=== PATIENT | male | born 1960 | race Caucasian/White ===

== ENCOUNTER 2018-07-16 12:56 | Day surgery (SDC) | payer OTHER ==
[~2018-07-16 12:56] MED LIST: AMARYL2 MG PO; BACTRIM DS1 TAB PO; DOXYCYC MONO100 MG OR; GABAPENTIN300 MG PO; GLIPIZIDE10 M2 PO; GLIPIZIDE10 MG PO; HYDROCHLOR12.5 MG/CA PO; HYDROCHLOROT12.5 MG PO; JANUVIA50 MG PO; LISINOPRIL10 MG PO; LOPRESSOR50 M1 PO; METOPROL TAR100 MG PO; METOPROLOL TAR100 MG PO; TIZANIDINE4 MG PO; TRAMADOL HCL50 MG PO; TRIAM/HCTZ1 CAP PO
[2018-07-16] MEDS ORDERED: PRANDIN2 MG PO (13:23)
[2018-07-16] MEDS ORDERED: NOVOLOG MIX SC (13:25)
[2018-07-16 13:59] LABS: HEMATOCRIT 46.8 % (39.0-50.0); HEMOGLOBIN 15.8 g/dl (14.0-18.0); MEAN CELL VOLUME 91.1 fL CALC (80.0-100.0); MEAN CORPUSCULAR HGB 30.7 pG CALC (26.0-32.0); MEAN CORPUSCULAR HGB CONC 33.8 g/L CALC (32.0-36.0); RED BLOOD COUNT 5.14 mill/uL (4.70-6.10); RED CELL DISTRI WIDTH 12.3 % (11.5-15.5)
[2018-07-16 14:19] LABS: ALKALINE PHOSPHATASE 83 u/l (38-126); ANION GAP 18 (6-22 (CALC)); BILIRUBIN, TOTAL 0.6 mg/dL (0.0-1.4); BUN 14 mg/dL (9-20); BUN/CREATININE RATIO 20 (12-20 (CALC)); CARBON DIOXIDE 28 mmol/l (22-30); CHLORIDE 92 mmol/l (95-108); CREATININE 0.7 mg/dL (0.7-1.3); GFR > 60 ML/MIN (>=60 (CALC)); GFR FOR AFR.AMER. > 60 ML/MIN (>=60 (CALC)); POTASSIUM 4.3 mmol/l (3.5-5.1); SODIUM 133 mmol/l (137-146); TOTAL PROTEIN 7.2 g/dL (6.3-8.2)
[2018-07-16 14:21] LABS: ALBUMIN 3.9 g/dL (3.2-5.0); SGOT/AST 23 u/l (17-59)
[2018-07-16] MEDS ORDERED: TORADOL PO (15:12)
[2018-07-16] MEDS ORDERED: PERCOCET 10/31 COMBO PO (15:12)
[2018-07-16] MEDS ORDERED: AUGMENTIN875TAB PO (15:12)
[2018-07-16 15:30] VITALS: BP 114/64
== END 2018-07-16 15:40 | disposition home or self-care (01) | DRG 989 ==
LOC: ORM 12:56
PROVIDERS: ATTEND Surgery
PROC: 0J9B0ZZ Drainage of Perineum Subcutaneous Tissue and Fascia, Open Approach (ICD-10-PCS; principal; 2018-07-16)
DX: K61.39 Other ischiorectal abscess (principal); I10 Essential (primary) hypertension

== ENCOUNTER → 2018-12-25 | Outpatient (REF) | payer OTHER ==
[~2018-12-25] MED LIST changes: +AUGMENTIN875TAB PO; +NOVOLOG MIX SC; +PERCOCET 10/31 COMBO PO; +PRANDIN2 MG PO; +TORADOL PO
== END | disposition home or self-care (01) | DRG 305 ==
LOC: LAB 08:12
PROVIDERS: ATTEND Nurse Practitioner Family
DX: I10 Essential (primary) hypertension (principal); E11.65 Type 2 diabetes mellitus with hyperglycemia; Z12.5 Encounter for screening for malignant neoplasm of prostate

== ENCOUNTER 2024-05-30 20:25 | Emergency (ER) | payer BC ==
[2024-05-30] VITALS (8 sets, daily range): BP systolic 127–176; BP diastolic 59–86
[~2024-05-30] VITALS: Ht 172.7 cm; Wt 90.0 kg
[~2024-05-30 20:25] MED LIST changes: +LOSARTAN POT50 MG PO; +OMEPRAZOLE20 MG PO
[2024-05-30] MEDS ORDERED: FAMOTIDINE 10MG/ML 2ML SDV IV STA (20:36)
[2024-05-30] MEDS ORDERED: methylPREDNISolone SODIUM SUCC 125 MG/2 ML SDV IV STA (20:36)
[2024-05-30] MEDS ORDERED: DiphenhydrAMINE HCL 50 MG/ML SDV IV STA (20:36)
[2024-05-30] MEDS ORDERED: PREDNISONE50 MG PO (21:30)
[2024-05-30] MEDS ORDERED: predniSONE 20 MG/TAB PO ONE (21:30)
== END 2024-05-30 22:15 | disposition home or self-care (01) | DRG 916 ==
LOC: ED 20:25
DX: T78.40XA Allergy, unspecified, initial encounter (principal); I10 Essential (primary) hypertension; E11.9 Type 2 diabetes mellitus without complications; Z79.84 Long term (current) use of oral hypoglycemic drugs; X58.XXXA Exposure to other specified factors, initial encounter